=== PATIENT | female | born 1985 | race Hispanic/Latino ===

== ENCOUNTER 2020-09-07 12:49 | Emergency (ER) | payer MEDICAID, OTHER ==
[2020-09-07 13:10] LABS: APPEARANCE,URINE Turbid (CLEAR); BILIRUBIN,URINE Small (NEGATIVE); COLOR,URINE Dark Yellow (YELLOW); GLUCOSE, URINE (UA) Negative (NEGATIVE); KETONES,URINE Trace mg/dL (NEGATIVE); LEUKOCYTE ESTERASE ,URINE Moderate (NEGATIVE); NITRATE,URINE Positive (NEGATIVE); OCCULT BLOOD,URINE Negative (NEGATIVE); PROTEIN,URINE POS 1+ mg/dL (NEGATIVE)
[2020-09-07 13:14] LABS: HCG,QUAL RESULT NEGATIVE (NEGATIVE)
[2020-09-07] MEDS ORDERED: LIDOCAINE HCL-MPF 1% 2ML VIAL ONE (13:15)
[2020-09-07] MEDS ORDERED: CEFTRIAXONE 1G VIAL ONE (13:16)
[2020-09-07] MEDS ORDERED: PHENAZOPYRIDINE HCL 200 MG TABLET ONE (13:16)
[2020-09-07 13:28] LABS: BACTERIA,URINE Moderate /HPF (None Seen); RBC,URINE 0-1 /HPF (0-1)
[2020-09-07 13:29] LABS: COARSE GRANULAR CASTS,URINE 0-2 /LPF (None Seen)
== END 2020-09-07 13:41 | disposition home or self-care (01) ==
LOC: EDH 12:49
DX: N30.90 Cystitis, unspecified without hematuria (principal); Z72.0 Tobacco use
CPT/HCPCS: 81001; 81025; 87088; 96372; 99283; J0696; J3490

== ENCOUNTER 2020-11-01 02:45 | Emergency (ER) | payer SELFPAY ==
[2020-11-01] MEDS ORDERED: IBUPROFEN 600 MG TABLET ONE (03:10)
[2020-11-01] MEDS ORDERED: ACETAMINOPHEN EXTRA STRENGTH 500 MG TABLET ONE (03:11)
== END 2020-11-01 03:17 | disposition home or self-care (01) ==
LOC: EDH 02:45
DX: S00.83XA Contusion of other part of head, initial encounter (principal); W51.XXXA Accidental striking against or bumped into by another person, initial encounter; Y93.89 Activity, other specified; Y92.89 Other specified places as the place of occurrence of the external cause; Y99.8 Other external cause status

== ENCOUNTER 2020-12-19 07:07 | Emergency (ER) | payer SELFPAY ==
[~2020-12-19] VITALS: Ht 165.1 cm; Wt 86.2 kg
[2020-12-19 07:16] VITALS: BP 115/72
[2020-12-19 08:18] VITALS: BP 120/76
[2020-12-19 08:21] LABS: BASOPHILS % (AUTO) 0.5 % (0.0-5.0); EOSINOPHILS % (AUTO) 2.6 % (0.0-8.0); HEMATOCRIT 40.6 % (36-48); LYMPHOCYTES % (AUTO) 11.1 % (21.0-51.0); MEAN CORPUSCULAR HEMOGLOBIN 29.5 pg (27.0-33.0); MEAN CORPUSCULAR HGB CONC 31.8 g/dL (32.0-36.0); MEAN CORPUSCULAR VOLUME 92.9 fL (79-99); NEUTROPHILS % (AUTO) 77.3 % (40.0-77.0); PLATELET COUNT (AUTO) 282 K/uL (130-400); RED BLOOD CELL COUNT(AUTO) 4.37 MIL/uL (4.00-5.50); RED CELL DISTRIBUTION WIDTH 13.1 % (11.0-15.5); WHITE BLOOD COUNT (AUTO) 10.9 K/uL (4.8-10.8)
[2020-12-19 09:05] LABS: CREATININE 0.9 mg/dL (0.5-1.5); POTASSIUM 4.8 mmol/L (3.5-5.1)
[2020-12-19 09:09] LABS: ALBUMIN 3.8 g/dL (3.5-5.0); BILIRUBIN,TOTAL 0.4 mg/dL (0.2-1.0); TOTAL PROTEIN, SERUM 7.5 g/dL (6.0-8.3)
[2020-12-19] MEDS ORDERED: AZIT500T2 PO (09:41)
[2020-12-19 09:45] VITALS: BP 122/78
== END 2020-12-19 10:30 | disposition home or self-care (01) ==
LOC: EDH 07:07
DX: J20.9 Acute bronchitis, unspecified (principal); Z20.822 Contact with and (suspected) exposure to COVID-19; F17.200 Nicotine dependence, unspecified, uncomplicated; E11.9 Type 2 diabetes mellitus without complications
CPT/HCPCS: 36415; 71045; 80053; 81025; 85025; 87040 ×2; 87635; 87804 ×2; 99284; C9803

== ENCOUNTER 2022-02-05 10:19 | Emergency (ER) | payer MEDICAID ==
[~2022-02-05] VITALS: Ht 165.1 cm; Wt 86.2 kg
[~2022-02-05 10:19] MED LIST: AZIT500T2 PO
[2022-02-05 10:25] VITALS: BP 123/74
[2022-02-05 10:42] LABS: APPEARANCE,URINE CLEAR (CLEAR); BILIRUBIN,URINE NEGATIVE (NEGATIVE); COLOR,URINE YELLOW (YELLOW); GLUCOSE, URINE (UA) NEGATIVE (NEGATIVE); KETONES,URINE NEGATIVE (NEGATIVE); LEUKOCYTE ESTERASE ,URINE TRACE (NEGATIVE); NITRATE,URINE POSITIVE (NEGATIVE); OCCULT BLOOD,URINE NEGATIVE (NEGATIVE); PROTEIN,URINE NEGATIVE (NEGATIVE)
[2022-02-05 10:44] LABS: RBC,URINE 0-1 /HPF (0-1)
[2022-02-05 10:45] LABS: BACTERIA,URINE Few /HPF (None Seen); MUCUS,URINE Few LPF (None Seen); SQUAMOUS EPITHELIAL CELL,UR Rare /HPF (0-2)
[2022-02-05 11:08] LABS: HCG,QUALITATIVE URINE NEGATIVE (NEGATIVE)
== END 2022-02-05 11:30 | disposition left against medical advice (07) ==
LOC: EDH 10:19
DX: R35.0 Frequency of micturition (principal); Z53.21 Procedure and treatment not carried out due to patient leaving prior to being seen by health care provider
CPT/HCPCS: 81001; 81025; 87077; 87088; 87186

== ENCOUNTER 2022-06-23 21:15 | Emergency (ER) | payer MEDICAID ==
[~2022-06-23] VITALS: Ht 165.1 cm; Wt 93.6 kg
[2022-06-23 23:03] VITALS: BP 145/72
== END 2022-06-24 00:14 | disposition home or self-care (01) ==
LOC: EDH 21:15
DX: B34.9 Viral infection, unspecified (principal); Z20.822 Contact with and (suspected) exposure to COVID-19
CPT/HCPCS: 99283; 87635; 87880; 87804 ×2; C9803